=== PATIENT | male | born 1940 | race Caucasian/White ===

== ENCOUNTER → 2016-10-05 | Outpatient (CLI) | payer OTHER | LOC: BHFA 13:15 | PROVIDERS: ATTEND Internal Medicine Cardiovascular Disease | DX: I38 Endocarditis, valve unspecified (principal); I10 Essential (primary) hypertension ==

== ENCOUNTER → 2016-10-13 | Outpatient (CLI) | payer OTHER | LOC: BHFA 09:00 | PROVIDERS: ATTEND Internal Medicine Cardiovascular Disease | DX: R94.31 Abnormal electrocardiogram [ECG] [EKG] (principal); I10 Essential (primary) hypertension; I07.1 Rheumatic tricuspid insufficiency ==

== ENCOUNTER → 2016-10-20 | Outpatient (CLI) | payer OTHER | LOC: BHFA 13:30 | PROVIDERS: ATTEND Internal Medicine Cardiovascular Disease | DX: R94.31 Abnormal electrocardiogram [ECG] [EKG] (principal); R94.39 Abnormal result of other cardiovascular function study; I10 Essential (primary) hypertension; I07.1 Rheumatic tricuspid insufficiency | CPT/HCPCS: 78452; 93017; A9500 ==

== ENCOUNTER → 2016-10-27 | Outpatient (CLI) | payer OTHER | LOC: FIMAGING 10:07 | PROVIDERS: ATTEND Orthopaedic Surgery | DX: M25.511 Pain in right shoulder (principal); M75.111 Incomplete rotator cuff tear or rupture of right shoulder, not specified as traumatic; M75.21 Bicipital tendinitis, right shoulder; M75.81 Other shoulder lesions, right shoulder; M12.9 Arthropathy, unspecified ==

== ENCOUNTER → 2016-12-10 | Outpatient (CLI) | payer OTHER ==
[~2016-12-10] MED LIST: GADOBUTROL 10 ML VIAL IVP ONE
== END ==
LOC: FIMAGING 07:57
PROVIDERS: ATTEND Physician Assistant
DX: M51.36 Other intervertebral disc degeneration, lumbar region (principal); M51.37 Other intervertebral disc degeneration, lumbosacral region; M43.16 Spondylolisthesis, lumbar region; M12.88 Other specific arthropathies, not elsewhere classified, other specified site; M48.06 Spinal stenosis, lumbar region; M48.07 Spinal stenosis, lumbosacral region; M99.73 Connective tissue and disc stenosis of intervertebral foramina of lumbar region; Z98.1 Arthrodesis status
CPT/HCPCS: 72158; A9585

== ENCOUNTER 2017-03-25 05:52 | Observation (INO) | payer OTHER ==
--- NOTE | 2017-03-24 09:00 | GHP ---
[f rep st] PREOP HISTORY AND PHYSICAL DATE OF ADMISSION: 03/25/2017 HISTORY: Lorenzo is a pleasant 76-year-old right-hand dominant gentleman well known to my practice. He has had a 9 month history of right shoulder pain that occurred while doing yoga. He had surgery in November of this year. However, his right upper extremity numbness has been aggravated since the johnson rgery. Furthermore, his right shoulder pain remains. He perceives a cold sensation in his right up per extremity. The patient denies any loss of dexterity and no loss of balance. He does have numbn ess in the right upper extremity as well as pain. On a visual analog scale of 1-10, he rates his da jaylen pain of 5. He has tried a number of nonoperative treatments. SOCIAL HISTORY: Negative for tobacco. He uses alcohol occasionally. FAMILY HISTORY: Uterine cancer in his mother. ALLERGIES: To medications are none. PAST MEDICAL HISTORY: Negative. PAST SURGICAL HISTORY: Left hand repair due to the lacerations, L4-5 laminectomy in 2001, L4-L5 rev ision laminectomy with anterior and posterior fusion with instrumentation in 2006, and an L3-4 torsten ectomy in 2012, all by myself. Also significant for the recent right shoulder surgery. MEDICATIONS: None. He stopped his aspirin over a week ago. PHYSICAL EXAM: VITAL SIGNS: Blood pressure is 142/78. CARDIAC: Regular rate and rhythm without d etectable murmur rub or gallop. LUNGS: Clear to auscultation. He has no wheezing or rhonchi. ALE ROLOGIC: Exam shows decreased left and right rotation of the cervical spine. Strength of bilateral upper extremities is 5/5 throughout. Light touch is intact to bilateral upper extremities with the exception of the right thumb and index finger, and left small finger. Reflexes are absent except f or the left triceps is 1/4. Aaron test is negative x2. Spurling test is negative x2. He is ten johnathan to palpation along the right inferior border of the medial aspect of the scapula. Gait is ashley l. RADIOGRAPHIC STUDIES: MRI dated 02/24/2017 of the cervical spine shows severe spinal stenosis C3-4 with myelomalacia within the spinal cord. At C4-5 he has a spondylolisthesis. C5-C7 shows moderate to severe degenerative disk disease. He has mild stenosis at C4-5. EMG of bilateral upper extremities shows mild right carpal tunnel syndrome and mild right thoracic o utlet syndrome. IMPRESSION: 1. Cervical myelomalacia at C3-4. 2. Severe stenosis C3-4 and mild at C4-5. 3. Grade 1 spondylolisthesis C4-5. PLAN: Given the myelomalacia due to the severe stenosis, surgery is recommended. Although patient has moderate to severe degenerative disk disease at C5-C7, I have recommended addressing only the C3 -4 and C4-5 levels given he has minimal neck pain and a 4 level fusion would not be in the patient's best interest. He agrees. Potential risks, benefits, possible complications have been thoroughly discussed including but not limited to, dural tear with CSF leak, meningitis, nerve root injury, par tial or complete paralysis, infection, need for further surgery, Deng syndrome, dysphagia, aphonia , injury to the esophagus or the trachea, nonunion, breakage or pullout of internal fixation, as wel l as DVT, PE, pneumonia, stroke, heart attack, hemorrhage, blindness, and . The patient's ques tions have been answered thoroughly. He will be n.p.o. after midnight tonight. /[id number]/MODL
[2017-03-25] MEDS ORDERED: ceFAZolin 2 GM/DEXTROSE 100 ML IV ONE (06:00)
[2017-03-25] MEDS ORDERED: LR 1,000 ML IV ONE (06:14)
[2017-03-25] MEDS ORDERED: LIDOCAINE 1% 2 ML INJ ID PRN (06:14)
[2017-03-25] MEDS ORDERED: AVITENE POWDER 1 GM JAR TP ONE (06:48)
[2017-03-25] MEDS ORDERED: THROMBIN (BOVINE) 20,000 UNIT VIAL TP ONE (06:48)
[2017-03-25] MEDS ORDERED: BACITRACIN 50,000 UNITS/10 ML SYR IRR ONE (06:49)
--- NOTE | 2017-03-25 07:17 | PDHPUP ---
History & Physical Update H&P update statement: This history and physical update is based on an assessment of the patient which was completed after admission or registration (within 24 hours), but prior to the surgery/procedure. H&P update: H&P reviewed & patient examined, no change in patient's condition since H&P completed
[2017-03-25] MEDS ORDERED: METHYLENE BLUE 0.5% 50 MG/10 ML AMP ONE (07:18)
[2017-03-25] MEDS ORDERED: fentaNYL 100 MCG/2 ML INJ ONE ×3 (07:26→10:48)
[2017-03-25] MEDS ORDERED: REMIFENTANIL HCL 1 MG VIAL ONE (07:26)
[2017-03-25] MEDS ORDERED: PROPOFOL 200 MG/20 ML VIAL ONE (07:26)
[2017-03-25] MEDS ORDERED: PROPOFOL/EMULSION 500 MG/50 ML BOTTLE IV ONE (07:26)
[2017-03-25] MEDS ORDERED: ROCURONIUM 50 MG/5 ML VIAL ONE (07:26)
[2017-03-25] MEDS ORDERED: ONDANSETRON 4 MG/2 ML VIAL ONE (07:26)
[2017-03-25] MEDS ORDERED: LIDOCAINE 2% 5 ML SDV ONE (07:27)
[2017-03-25] MEDS ORDERED: PHENYLEPHRINE HCL 100 MCG/ML SYR ONE (07:35)
[2017-03-25] MEDS ORDERED: BISACODYL 10 MG SUPP PR PRN (07:36)
[2017-03-25] MEDS ORDERED: ONDANSETRON DISINTEGRATING 4 MG TAB PO PRN (07:36)
[2017-03-25] MEDS ORDERED: METHOCARBAMOL 750 MG TAB PO PRN (07:36)
[2017-03-25] MEDS ORDERED: diphenhydrAMINE 25 MG CAP PO PRN (07:36)
[2017-03-25] MEDS ORDERED: LACTULOSE 20 GM/30 ML UDCUP PO PRN (07:36)
[2017-03-25] MEDS ORDERED: ONDANSETRON 4 MG/2 ML VIAL IVP PRN ×2 (07:36→08:50)
[2017-03-25] MEDS ORDERED: ZOLPIDEM TARTRATE 5 MG TAB PO PRN (07:36)
[2017-03-25] MEDS ORDERED: POLYETHYLENE GLYCOL 3350 17 GM PKT PO PRN (07:36)
[2017-03-25] MEDS ORDERED: oxyCODONE IR 5 MG TAB PO PRN (07:36)
[2017-03-25] MEDS ORDERED: MAGNESIUM HYDROXIDE 30 ML UDCUP PO PRN (07:36)
[2017-03-25] MEDS ORDERED: DIAZEPAM 5 MG TAB PO PRN (07:42)
[2017-03-25] MEDS ORDERED: NS 1,000 ML IV SCH (07:45)
[2017-03-25] MEDS ORDERED: epHEDrine SULFATE 10 MG/ML SYR ONE ×3 (08:03→08:39)
[2017-03-25] MEDS ORDERED: DEXAMETHASONE 4 MG/ML VIAL ONE ×2 (08:23)
--- NOTE | 2017-03-25 08:43 | PDANEPAE ---
ANE Past Medical History - Cardiovascular History Hx Hypertension: Yes Hx Arrhythmias: No Hx Chest Pain: No Hx Coronary Artery / Peripheral Vascular Disease: No Hx CHF / Valvular Disease: Yes Hx Palpitations: No Cardiovascular History Comment: PVC'S - Pulmonary History Hx COPD: No Hx Asthma/Reactive Airway Disease: No Hx Recent Upper Respiratory Infection: No Hx Oxygen in Use at Home: No Hx Sleep Apnea: No Sleep Apnea Screening Result - Last Documented: Positive - Neurologic History Hx Cerebrovascular Accident: No Hx Seizures: No Hx Dementia: No - Endocrine History Hx Diabetes: No Hypothyroid: Yes Hyperthyroid: No Obesity: no Endocrine History Comment: HYPOTHYROID - Renal History Hx Renal Disorders: No - Liver History Hx Hepatic Disorders: No - Neurological & Psychiatric Hx Hx Neurological and Psychiatric Disorders: No - Cancer History Hx Cancer: Yes Cancer History Comment: BLADDER - Congenital Disorder History Hx Congenital Disorders: No - GI History GERD: no Hx Gastrointestinal Disorders: No - Other Health History Other Health History: NEUROPATHY. ELEVATED IOP - Chronic Pain History Chronic Pain: Yes (RT ARM NUMBNESS) - Surgical History Prior Surgeries: RT SHLDR SCOPE 12/03/2016. TUR X2. TURP. LUMBAR FUSION. CERVICAL DANITA. COLONOSCOPY ANE Review of Systems - Exercise capacity METS (RN): 5 METS ANE Patient History - Allergies Allergies/Adverse Reactions: midazolam [From Versed] Allergy (Verified 03/18/17 11:13) DECREASED OXYGEN SATS CIGARETTE SMOKE Allergy (Intermediate, Uncoded 02/14/10 09:54) Other-Enter Comments ETHER Allergy (Intermediate, Uncoded 02/14/10 09:54) Other-Enter Comments SAW DUST Allergy (Intermediate, Uncoded 02/14/10 09:54) Other-Enter Comments - Home Medications Home Medications: Latanoprost 0.005% [Xalatan 0.005% (*)] 1 drops EACHEYE HS 03/17/17 [Last Taken 03/24/17] Levothyroxine [Synthroid 100 mcg (*)] 100 mcg PO DAILY06 03/17/17 [Last Taken ] Losartan Potassium [Cozaar 25 mg (*)] 25 mg PO DAILY 03/17/17 [Last Taken ] - NPO status NPO Since - Liquids (Date): 03/24/17 NPO Since - Liquids (Time): 21:30 NPO Since - Solids (Date): 03/24/17 NPO Since - Solids (Time): 20:00 - Anes Hx Anes Hx: no prior problems - Smoking Hx Smoking Status: Never smoked - Alcohol Use Alcohol Use: Occasionally - Family Anes Hx Family Anes Hx: neg - N/A ANE Labs/Vital Signs - Vital Signs Blood Pressure: 130/89 Heart Rate: 79 Respiratory Rate: 16 O2 Sat (%): 96 Height: 176.53 cm Weight: 77.111 kg ANE Physical Exam - Airway Neck exam: decreased ROM Mallampati Score: Class 1 Mouth exam: normal dental/mouth exam - Pulmonary Pulmonary: no respiratory distress, no rales or rhonchi, clear to auscultation - Cardiovascular Cardiovascular: systolic murmur, bradycardia - ASA Status ASA Status: II ANE Anesthesia Plan Anesthesia Plan: general endotracheal anesthesia
[2017-03-25] MEDS ORDERED: D5W LR 500 ML IV PRN (08:50)
[2017-03-25] MEDS ORDERED: fentaNYL 100 MCG/2 ML INJ IVP PRN ×2 (08:50)
[2017-03-25] MEDS ORDERED: HYDROCODONE/APAP 5/325 TAB PO PRN (08:50)
[2017-03-25] MEDS ORDERED: ACETAMINOPHEN 500 MG TAB PO PRN (08:50)
[2017-03-25] MEDS ORDERED: NALOXONE HCL 0.4 MG/ML INJ IVP PRN (08:50)
[2017-03-25] MEDS ORDERED: OXYCODONE/APAP 5/325 TAB PO PRN (08:50)
[2017-03-25] MEDS ORDERED: PROMETHAZINE HCL 25 MG/ML INJ IVP PRN (08:50)
[2017-03-25] MEDS ORDERED: CEFAZOLIN 1 GM/DEXTROSE/50 ML BAG IV ONE (10:12)
--- NOTE | 2017-03-25 10:20 | POSTOPPROG ---
Post Op Note Date of Operation: 03/25/17 Surgeon: Bridget Alexander Salvage Supervisor: Meron Davison SA Anesthesiologist: DO Venkata Anesthesia: GET(General Endotracheal) Pre-op Diagnosis: C3-5 stenosis and myelomalacia Post-op Diagnosis: same Indication: myelomalacia Procedure: C3-5 ACDF/I Findings: severe stenosis C3-4 and mod at C4-5 Inf/Abcess present in the surg proc area at time of surgery?: No Depth: Deep Incisional (Fascial) EBL: 50 cc Total fluids administered: 1600cc Complications: none. No changes in SSEPs, MEPs, and EMGs.
[2017-03-25] MEDS: LOSARTAN POTASSIUM 25 MG TAB PO SCH (11:52)
[2017-03-25] MEDS: SENNOSIDES/DOCUSATE SODIUM TAB PO SCH ×2 (11:52→20:48)
--- NOTE | 2017-03-25 11:56 | POSTANESTH ---
Post Anesthetic Evaluation Cardiovascular Status: Normal, Stable Respiratory Status: Normal, Stable Level of Consciousness/Mental Status: Can Participate in Eval Pain Control: Adequate, Prn Tx Ordered Nausea/Vomiting Control: Adequate, Prn Tx Ordered Complications Possibly Related to Anesthesia: None Noted
[2017-03-25] MEDS: ceFAZolin 2 GM/DEXTROSE 100 ML IV SCH ×2 (14:05→20:47)
[2017-03-25] MEDS: ACETAMINOPHEN 500 MG TAB PO SCH ×2 (14:06→20:46)
[2017-03-25] MEDS ORDERED: LATANOPROST 0.005% 2.5 ML OPHT DROPS EACHEYE SCH (21:00)
[2017-03-26] MEDS: ACETAMINOPHEN 500 MG TAB PO SCH ×2 (05:48→14:24)
[2017-03-26] MEDS ORDERED: LEVOTHYROXINE 100 MCG TAB PO SCH (06:00)
[2017-03-26] MEDS: SENNOSIDES/DOCUSATE SODIUM TAB PO SCH (07:58)
[2017-03-26] MEDS: LOSARTAN POTASSIUM 25 MG TAB PO SCH (07:59)
[2017-03-26 11:18] VITALS: RESP 18
[2017-03-26 11:40] VITALS: BP 112/64; PULSE 59; TEMP 98.2; O2SAT 92
--- NOTE | 2017-03-26 13:36 | SOAPPROG ---
SOAP Progress Note Assessment/Plan: Assessment: post op day 1, s/p C3-5 ACDF/I for severe stenosis and myelomalacia. Pt doing well. Dysphagia present. Pt saw speech path. Plan: Ready for discharge to home. 03/26/17 13:32 Subjective: Pt states he gets bread caught in his throat. Dysphagia 2 diet had been ordered. Numbness in RUE unchanged. Objective: Vital Signs Temp Pulse Resp BP Pulse Ox 36.8 C 59 L 18 112/64 92 03/26/17 11:39 03/26/17 11:39 03/26/17 11:39 03/26/17 11:39 03/26/17 11:39 03/25/17 03/26/17 03/27/17 05:59 05:59 05:59 Intake Total 3818 Output Total 2400 Balance 1418 BUE motor 5/5. No Deng's syndrome. ICD10 Worksheet Patient Problems: Problems Problem Status Onset Stenosis of cervical spine with myelopathy Acute - ICD10 Problem Qualifiers (1) Stenosis of cervical spine with myelopathy
--- NOTE | 2017-03-26 18:04 | GDS ---
[f rep st] DISCHARGE SUMMARY HOSPITAL COURSE: The patient is a pleasant 76-year-old, right-hand dominant gentleman well known to my practice. He had had a 9-month history of right shoulder pain and has experienced increasing ri ght upper extremity tingling and numbness. On exam, his strength was normal, but MRI showed myeloma lacia at the C3-4 level and grade 1 spondylolisthesis at C4-5. Surgery was recommended due to the s evere stenosis and myelomalacia. On 03/25/2017, patient was brought to the operating room and underwent a general endotracheal intuba tion. Under neuromonitoring using somatosensory evoked potentials, motor evoked potentials, and EMG s, patient underwent a C3-C5 anterior diskectomy fusion with instrumentation. Findings were severe stenosis at C3-4 and moderate at C4-5. There were no changes in spinal cord monitoring. Patient di d very well. Postoperatively, the patient was seen in PT, OT, and speech pathology. He did have so me dysphagia, especially with bread, and was recommended a dysphagia type 2 diet. Neurologically, t here were no changes. He has been ambulating. He has urinated without difficulty. He has had no n ausea or vomiting and only using Tylenol for pain control. Patient is being discharged to home in s atisfactory condition. He and his know that he needs to wear a soft cervical collar at all trace es except for during showers. He needs to do a daily dry dressing change. He had been given prescr iptions in advance from my office including Valium, Percocet, and Keflex. He knows to call my offic e immediately or go to the nearest emergency room or call if he were to have any difficulty wi th airway and breathing. I encouraged him to continue with a soft liquid diet until the dysphagia s ubsides. He needs to walk but no lifting more than 20 pounds. His questions were answered thorough ly, and patient has a follow-up appointment with me in 2 weeks. /[id number]/MODL
--- NOTE | 2017-03-29 09:32 | GOP ---
[f rep st] OPERATIVE REPORT DATE OF OPERATION: 03/25/2017 SURGEON: Bridget Bruce MD OPERATIONS SUPPORT SPECIALIST: Steven Davison SA ANESTHESIA: Dr. Holland Hastings, general endotracheal intubation. PREOPERATIVE DIAGNOSIS: 1. C3-4 cervical myelomalacia. 2. C4-5 spondylolisthesis. 3. Severe stenosis C3-4 and mild C4-5. POSTOPERATIVE DIAGNOSIS: 1. C3-4 cervical myelomalacia. 2. C4-5 spondylolisthesis. 3. Severe stenosis C3-4 and mild C4-5. PROCEDURE PERFORMED: 1. C3-4 and C4-5 anterior diskectomy complete decompression. 2. Anterior interbody arthrodesis. 3. Anterior instrumentation with spinal element Sapphire plate and screws. FINDINGS: Severe spinal stenosis C3-4 and moderate spinal stenosis C4-5, moderate degenerative disk disease C4-5 with spondylolisthesis. ESTIMATED BLOOD LOSS: 50 cc. INDICATIONS: The patient is a pleasant 76-year-old [id number] gentleman well-known to my p elena. He is 9 months status post a right shoulder injury. He had shoulder surgery approximately 4 months ago and his right upper extremity numbness has been aggravated since then. He also has a cold sensation in his right upper extremity. Patient denies any loss of dexterity. He has pain and on a 1 to 10 scale, rates it a 5. On MRI he was found have cervical spinal cord myelomalacia at C3 -4 and severe stenosis at that level, as well as instability at C4-5. He also has taadzfoa-gf-xtmwr e degenerative disk disease C5-6 and C6-7. Per my recommendation due to the myelomalacia and severe stenosis, surgery was recommended. No guarantees were given in regard to surgical outcome. Potent ial risks, benefits, possible complications have been thoroughly discussed including, but not limite d to, dural tear with CSF leak, meningitis, nerve root injury, partial or complete paralysis, infect ion, Deng syndrome, dysphagia, aphonia, junctional breakdown, nonunion, need for further surgery, lack of improvement of symptomatology, DVT, PE, pneumonia, stroke, heart attack, hemorrhage, blindne ss, and . DESCRIPTION OF PROCEDURE: After obtaining both written and verbal consent from the patient, he was brought to the operating room where he underwent a general endotracheal intubation. Patient receive d IV antibiotics. Gaytan catheter was placed. Neural monitoring was set up including somatosensory evoked potentials, motor evoked potentials, and EMGs. A lateral fluoroscopic x-ray of the cervical spine using an exterior metallic marker was obtained for localization. The anterior aspect of the c ervical spine was prepped and draped in the normal sterile fashion. A time-out was performed with jessica hwang entire operating room team, confirming patient's name, date of , planned surgical procedure including levels, antibiotics given, and allergies to medications. A left-sided transverse incision was made at C4. The incision was brought down through skin, subcut aneous tissues, into the overlying platysma. The deep cervical fascia was incised along the medial border of the sternocleidomastoid muscle. The trachea and the esophagus were gently retracted towar d the midline. The pretracheal and prevertebral fascia were bluntly dissected. The anterior aspect of the cervical spine was identified. Two bent spinal needles were placed at disk spaces based on the anatomic landmarks and the x-ray indeed showed these to be at the correct levels, which were C3- 4 and C4-5. The bent spinal needles were removed. The longus coli muscles were elevated with Bovie cautery. The operating microscope was brought in for further visualization. Buckner pins were plac ed, one at C3 and one at C4. Under the microscope, a 15-blade knife was used to create an annulotom y at C3-4. The disk was mildly degenerative. It was removed via piecemeal. The disk was removed a ll the way back to the posterior longitudinal ligament which was significantly hypertrophied and the re were posterior osteophytes that were taken down with a 1.5 mm Kerrison. The posterior longitudin al ligament was completely removed to decompress the spinal cord. At this level, stenosis was quite severe prior to decompression. Foraminotomies were also performed with a 2 mm Kerrison bilaterally . A 5 mm barrel-shaped bur was then used to create parallel endplates and the disk space was measur ed using trials. The most appropriate trial was a 9 mm. Therefore, a 16 x 13 x 9 mm lordosed PEEK Ti-Young cage by [employer] was prepared using autogenous local bone graft, as well as demineral ized bone matrix. The Crystal Ti-Young PEEK cage was tamped into position at C3-4 and recessed about 1 mm. A micro nerve hook was used to palpate posterior to the bone graft and there was no iatrogen ic compression of the spinal cord. Then, the C4-5 level was addressed. There was an anterior osteo phyte that was removed with a 5 mm round bur. Buckner pins were placed at C4 and C5 and very minimal distraction was placed. A 15-blade knife was used to create an annulotomy at C4-5. The disk was r emoved via piecemeal again using a 2-0 curved curette and pituitary [place] rongeur. The posterior lo ngitudinal ligament again was hypertrophied, but not as severely. There was moderate stenosis at th is level and moderate degenerative disk disease. The endplates were made to be parallel using a 5 m m barrel-shaped bur and local bone graft was saved for the arthrodesis. Foraminotomies were perform ed using a 2 mm Kerrison due to moderate stenosis bilaterally. Then, using trials again, a 10 mm tr ial had the best fit, and therefore, a 14 x 11 x 10 mm lordosed Crystal PEEK Ti-Young cage was placed using autogenous bone graft, as well as demineralized bone matrix. It was recessed about 1 mm and a 5 mm round bur was then used to contour the anterior aspect of C4-5 due to the spondylolisthesis. Then, at this time under loupe magnification, a 35 mm Sapphire plate by [employer] was chosen, contoured into cervical lordosis, and placed under direct visualization. The right C3 screw was 4 mm in diameter and 16 mm in length which was self-drilling, and all other screws were 4 mm x 14 mm i n length self-drilling. Two screws were placed at C3, two at C4, and two at C5 with excellent purch ase. The interlocking screw was tightened per the supervisory forester's recommendation. An AP and lateral fluoroscopic x-ray showed excellent position of internal fixation from C3 to C5. Under loupe magni fication, bipolar cautery and thrombin-soaked Gelfoam, as well as Avitene were utilized for hemostas is. The wound was completely dry prior to closure, and therefore, no drain was necessary. The stru ctures including esophagus and trachea were in excellent condition, as well as the spinal cord prior to placement of the PEEK cages and the carotid sheath and its contents. The wound was closed using a 2-0 undyed Vicryl in interrupted fashion in the platysma, followed by a 4-0 Prolene in a subcutic ular running fashion in the skin. Steri-Strips were applied. Sterile dressing was placed. Soft ce rvical collar was placed. There were no changes in somatosensory evoked potentials, motor evoked po tentials, or EMGs. The Gaytan catheter was removed. Patient was extubated in the operating room and brought to the recovery room in satisfactory condition. COMPLICATIONS: None. DRAINS: None. COUNTS: Sponge and needle count were correct upon closure. POSTOPERATIVE PLAN: Close neurologic observation, close airway observation, PT, OT, and pain contro l, as well as speech pathology. /[id number]/MODL
== END 2017-03-26 15:55 | disposition home or self-care (01) ==
LOC: F3N 05:52
PROVIDERS: ADMIT Orthopaedic Surgery Orthopaedic Surgery of the Spine; ATTEND Orthopaedic Surgery Orthopaedic Surgery of the Spine
PROC: 4A1004G Monitoring of Central Nervous Electrical Activity, Intraoperative, Open Approach (ICD-10-PCS; principal; 2017-03-25 07:15)
PROC: 0RG20A0 Fusion of 2 or more Cervical Vertebral Joints with Interbody Fusion Device, Anterior Approach, Anterior Column, Open Approach (ICD-10-PCS; principal; 2017-03-25 07:15)
PROC: 00NW0ZZ Release Cervical Spinal Cord, Open Approach (ICD-10-PCS; principal; 2017-03-25 07:15)
PROC: 0RB30ZZ Excision of Cervical Vertebral Disc, Open Approach (ICD-10-PCS; principal; 2017-03-25 07:15)
DX: M48.02 Spinal stenosis, cervical region (principal); G95.89 Other specified diseases of spinal cord; M43.12 Spondylolisthesis, cervical region; M50.322 Other cervical disc degeneration at C5-C6 level; M50.323 Other cervical disc degeneration at C6-C7 level; R13.10 Dysphagia, unspecified
CPT/HCPCS: 22551; 22552; 76001; 92610; 97161; 97165; C1713; G8978; G8979; G8980; G8987; G8988; G8989; G8996; G8997; J0690; J1100; J2370; J2405; J2704; J3010; Q9968

== ENCOUNTER 2017-03-31 11:39 | Inpatient (IN) | payer OTHER ==
[2017-03-31] MEDS ORDERED: ceFAZolin 2 GM/DEXTROSE 100 ML IV ONE (11:42)
[2017-03-31] MEDS ORDERED: LIDOCAINE 1% 2 ML INJ ONE (11:45)
[2017-03-31] MEDS ORDERED: THROMBIN (BOVINE) 20,000 UNIT VIAL TP ONE (11:48)
[2017-03-31] MEDS ORDERED: AVITENE POWDER 1 GM JAR TP ONE (11:48)
--- NOTE | 2017-03-31 11:48 | PDANEPAE ---
ANE History of Present Illness cervical hematoma s/p ACDF C5-7 on 03/25/17 ANE Past Medical History - Cardiovascular History Hx Hypertension: Yes Hx Arrhythmias: No Hx Chest Pain: No Hx Coronary Artery / Peripheral Vascular Disease: No Hx CHF / Valvular Disease: Yes Hx Palpitations: No Cardiovascular History Comment: PVC'S - Pulmonary History Hx COPD: No Hx Asthma/Reactive Airway Disease: No Hx Recent Upper Respiratory Infection: No Hx Oxygen in Use at Home: No Hx Sleep Apnea: No - Neurologic History Hx Cerebrovascular Accident: No Hx Seizures: No Hx Dementia: No - Endocrine History Hx Diabetes: No Endocrine History Comment: HYPOTHYROID - Renal History Hx Renal Disorders: No - Liver History Hx Hepatic Disorders: No - Neurological & Psychiatric Hx Hx Neurological and Psychiatric Disorders: No - Cancer History Hx Cancer: Yes Cancer History Comment: BLADDER - Congenital Disorder History Hx Congenital Disorders: No - GI History Hx Gastrointestinal Disorders: No - Other Health History Other Health History: NEUROPATHY. ELEVATED IOP - Chronic Pain History Chronic Pain: Yes (RT ARM NUMBNESS) - Surgical History Prior Surgeries: RT SHLDR SCOPE 12/03/2016. TUR X2. TURP. LUMBAR FUSION. CERVICAL DANITA. COLONOSCOPY ANE Review of Systems Review of systems is: negative - Exercise capacity Exercise capacity: >=4 METS ANE Patient History - Allergies Allergies/Adverse Reactions: midazolam [From Versed] Allergy (Verified 03/18/17 11:13) DECREASED OXYGEN SATS CIGARETTE SMOKE Allergy (Intermediate, Uncoded 02/14/10 09:54) Other-Enter Comments ETHER Allergy (Intermediate, Uncoded 02/14/10 09:54) Other-Enter Comments SAW DUST Allergy (Intermediate, Uncoded 02/14/10 09:54) Other-Enter Comments - Home Medications Home Medications: Latanoprost 0.005% [Xalatan 0.005% (*)] 1 drops EACHEYE HS 03/17/17 [Last Taken 03/24/17] Levothyroxine [Synthroid 100 mcg (*)] 100 mcg PO DAILY06 03/17/17 [Last Taken ] Losartan Potassium [Cozaar 25 mg (*)] 25 mg PO DAILY 03/17/17 [Last Taken ] - NPO status NPO Since - Liquids (Date): 03/31/17 NPO Since - Liquids (Time): 08:00 NPO Since - Solids (Date): 03/31/17 NPO Since - Solids (Time): 08:00 - Anes Hx Anes Hx: no prior problems - Smoking Hx Smoking Status: Never smoked ANE Physical Exam - Airway Neck exam: decreased ROM, spinal fusion, C-collar in place Mallampati Score: Class 2 Mouth exam: normal dental/mouth exam - Pulmonary Pulmonary: no respiratory distress - Cardiovascular Cardiovascular: regular rate and rhythym - ASA Status ASA Status: III, E ANE Anesthesia Plan Anesthesia Plan: general endotracheal anesthesia (emergent case)
[2017-03-31] MEDS ORDERED: BACITRACIN 50,000 UNITS/10 ML SYR IRR ONE (11:49)
[2017-03-31] MEDS ORDERED: PROPOFOL 200 MG/20 ML VIAL ONE (11:50)
[2017-03-31] MEDS ORDERED: fentaNYL 100 MCG/2 ML INJ ONE ×2 (11:50)
[2017-03-31] MEDS ORDERED: ROCURONIUM 100 MG/10 ML VIAL ONE (11:50)
[2017-03-31] MEDS ORDERED: LIDOCAINE 1% 2 ML INJ ID PRN (11:57)
[2017-03-31] MEDS ORDERED: LR 1,000 ML IV ONE (11:57)
[2017-03-31] MEDS ORDERED: diphenhydrAMINE 25 MG CAP PO PRN (12:03)
[2017-03-31] MEDS ORDERED: ONDANSETRON 4 MG/2 ML VIAL IVP PRN (12:03)
[2017-03-31] MEDS ORDERED: LACTULOSE 20 GM/30 ML UDCUP PO PRN (12:03)
[2017-03-31] MEDS ORDERED: BISACODYL 10 MG SUPP PR PRN (12:03)
[2017-03-31] MEDS ORDERED: oxyCODONE IR 5 MG TAB PO PRN (12:03)
[2017-03-31] MEDS ORDERED: MAGNESIUM HYDROXIDE 30 ML UDCUP PO PRN (12:03)
[2017-03-31] MEDS ORDERED: ONDANSETRON DISINTEGRATING 4 MG TAB PO PRN (12:03)
[2017-03-31] MEDS ORDERED: POLYETHYLENE GLYCOL 3350 17 GM PKT PO PRN (12:03)
[2017-03-31] MEDS ORDERED: DEXAMETHASONE 4 MG/ML VIAL ONE (12:09)
[2017-03-31] MEDS ORDERED: SUCCINYLCHOLINE CHLORIDE*ANESTHESIA ONLY*200 MG/10 ML SYR IVP ONE (12:09)
[2017-03-31] MEDS ORDERED: ONDANSETRON 4 MG/2 ML VIAL ONE (12:09)
--- NOTE | 2017-03-31 12:36 | GHP ---
[f rep st] PREOP HISTORY AND PHYSICAL DATE OF ADMISSION: 03/31/2017 HISTORY: The patient is a pleasant 76-year-old, right-hand dominant gentleman who is 6 days status post a C3-C5 anterior diskectomy, fusion with instrumentation for stenosis and myelomalacia. He thai led the office and stated he was having difficulty with swallowing. Initially postoperatively he wa s seen by the speech pathologist in the hospital and had no real issues. He was doing well up until approximately yesterday. He has had increasing difficulty with swallowing as well as breathing. H e states he is unable to breathe comfortably lying down but needs to be upright at all times. He wa s seen urgently in my office and on exam he is alert and oriented x3. He is stridorous. PAST MEDICAL HISTORY,: Significant only for BPH and bladder cancer. PAST SURGICAL HISTORY: Left hand surgery, lumbar fusion and the aforementioned C3-C5 anterior diske ctomy fusion with instrumentation. ALLERGIES: None. MEDICATIONS: Percocet. PHYSICAL EXAM: GENERAL: The patient is alert and oriented x3. He is clearly stridorous. His cerv ical wound shows a very large left-sided probable hematoma versus possible seroma. His trachea is d eviated to the right. His oxygen level has not been checked yet. HEART: He is not tachycardic. N EUROLOGIC: Shows strength of bilateral upper extremities to be 5/5 throughout. He still has some d ecreased sensation in the right hand which is unchanged from preoperatively. Gait is normal. RADIOGRAPHIC STUDIES: None. IMPRESSION: 1. Six days status post C3-C5 anterior diskectomy, fusion with instrumentation for stenosis and mye lomalacia. 2. Postoperative cervical retropharyngeal hematoma with airway compromise. PLAN: Patient is being admitted directly to the operating room. Potential risks, benefits, possibl e complications have been discussed with he and his and he understands this needs to be done on an emergent basis in which we will open his wounds, evacuate pressure and fluid from his trachea an d esophagus and explore the wound for any further active potential bleeding. He will then be admitt ed postoperatively as well. He ate at 7:30 this morning, small amounts as he is having a hard time getting any kind of food or liquid to stay down. Copy requested to: [facility] /[id number]/MODL
[2017-03-31] MEDS ORDERED: NALOXONE HCL 0.4 MG/ML INJ IVP PRN ×2 (12:45→13:22)
[2017-03-31] MEDS ORDERED: fentaNYL 100 MCG/2 ML INJ IVP PRN (12:45)
[2017-03-31] MEDS ORDERED: LR 500 ML IV PRN (12:45)
[2017-03-31] MEDS ORDERED: HYDROmorphONE/DILAUDID 1 MG/ML SYR IVP PRN (12:45)
[2017-03-31] MEDS ORDERED: SUGAMMADEX SODIUM 200 MG/2 ML VIAL IVP ONE (12:56)
--- NOTE | 2017-03-31 13:06 | POSTOPPROG ---
Post Op Note Date of Operation: 03/31/17 Surgeon: Bridget Alexander Front End Ui Developer: Meron Davison SA Anesthesiologist: Meron Isidro Anesthesia: GET(General Endotracheal) Pre-op Diagnosis: cervical retropharyngeal hematoma, s/p C3-5 ACDF Post-op Diagnosis: same Indication: difficulty breathing and swallowing Procedure: anterior cervical hematoma evacuation Findings: 75 cc retropharyngeal hematoma Inf/Abcess present in the surg proc area at time of surgery?: No Depth: Deep Incisional (Fascial) EBL: Minimal Complications: None. Drains: Darius Saavedra
[2017-03-31] MEDS ORDERED: LABETALOL HCL 50 MG/10 ML SYR IVP PRN (13:22)
[2017-03-31] MEDS ORDERED: LABETALOL HCL 5 MG/ML 20 ML MDV ONE (13:31)
[2017-03-31] MEDS: ACETAMINOPHEN 500 MG TAB PO SCH ×2 (15:16→21:00)
--- NOTE | 2017-03-31 15:21 | GOP ---
[f rep st] OPERATIVE REPORT DATE OF OPERATION: 03/31/2017 SURGEON: Bridget Bruce MD ROAD MACHINE RUNNER: Steven Davison SA. ANESTHESIA: Chris Isidro M.D., general endotracheal intubation. PREOPERATIVE DIAGNOSIS: 1. Six days status post C3 to C5 anterior diskectomy, fusion with instrumentation by myself. 2. Postoperative cervical hematoma with airway compromise. POSTOPERATIVE DIAGNOSIS: 1. Six days status post C3 to C5 anterior diskectomy, fusion with instrumentation by myself. 2. Postoperative cervical hematoma with airway compromise. PROCEDURE PERFORMED: Evacuation of anterior cervical retropharyngeal hematoma and exploration of an terior cervical wound. FINDINGS: Approximately 75 cc of hematoma-seroma. No evidence of spinal fluid leakage, and no evid ence of infection. INDICATIONS: The patient is a pleasant 76-year-old gentleman, well known to my practice. Six days ago he underwent a C3 to C5 anterior diskectomy, fusion with instrumentation for myelomalacia and se william stenosis by myself. He did well postoperatively. He called our office and stated he was havin g difficulty with swallowing. Today he was seen in the office and stated that he also has been havi ng difficulty with breathing, especially in the lying down supine position. His oral intake has dim inished significantly because of the dysphagia. He has no new arm pain or leg pain. He still has h is preoperative right upper extremity tingling and numbness. The patient was suspected to have a cervical retropharyngeal hematoma and surgery was recommended on an emergency basis. Potential risks, benefits, possible complications were thoroughly discussed wi th the patient including, but not limited to, dural tear with CSF leak, meningitis, nerve root injur y, partial or complete paralysis, infection, lack of improvement in symptomatology, DVT, PE, pneumon ia, stroke, heart attack, hemorrhage, blindness, and . No guarantees were given in regard to s urgical outcome. DESCRIPTION OF PROCEDURE: The patient was brought to the operating room and he underwent a general endotracheal intubation using the glide scope via the anesthesiologist. The anterior aspect of the cervical spine was prepped and draped in the normal sterile fashion. A left-sided transverse incisi on was made through his previous scar. This incision was brought down through the skin, subcutaneou s tissues into the overlying platysma. The sutures that had been placed in the platysma were remove d with suture scissors. Then, a large gush of coagulated blood came from the wound immediately. Th ere were no signs of infection and no purulence. As the wound was opened up more deeply using Cloward retractors, further hematoma was evacuated. In total this measured about 75 cc and appeared to be a combination of hematoma and seroma. Under loupe magnification, the wound was completely explored. The longus colli muscles were visuali zed and there were no signs of bleeding of the longus coli muscles. There was no evidence of spinal fluid leakage. Meticulous evaluation of the wound circumferentially and deep to superficial showed no evidence of active bleeding whatsoever. The plate was intact from C3 to C5 and there was no jaylyn akage or pull of internal fixation. Bipolar cautery was used to coagulate potential small sites of oozing, but there was absolutely noth ing active as though it had tamponaded itself. There were some previously placed 2-0 silk ties that were still in good position upon branches of the anterior branch of the external jugular vein. A 10 round CARISA drain was placed deep to the platysma and sewn in with a 2-0 nylon suture. The wound was completely dry prior to closure. The wound was then closed using a 2-0 undyed Vicryl in an inte rrupted fashion in the platysma, followed by a 4-0 Prolene in the subcuticular layer of the skin. S prince-Strips were applied. Sterile dressing was placed. Soft cervical collar was placed. It should be mentioned that a time-out had been performed before the entire operation. COMPLICATIONS: None. POSTOPERATIVE PLAN: Close neurologic observation, close airway observation, speech pathology, PT an d OT and pain control. /[id number]/MODL
[2017-03-31] MEDS: CEPACOL LOZENGE PO PRN (17:52)
[2017-03-31] MEDS: NS 1,000 ML IV SCH (18:04)
[2017-03-31] MEDS: ceFAZolin 2 GM/DEXTROSE 100 ML IV SCH (20:52)
[2017-03-31] MEDS: SENNOSIDES/DOCUSATE SODIUM TAB PO SCH (20:52)
[2017-04-01] MEDS: ceFAZolin 2 GM/DEXTROSE 100 ML IV SCH (04:18)
[2017-04-01] MEDS: NS 1,000 ML IV SCH (04:24)
[2017-04-01] MEDS: ACETAMINOPHEN 500 MG TAB PO SCH ×4 (05:33→21:37)
[2017-04-01 05:36] LABS: % IMMATURE GRANULYOCYTES 0.9 % (0.0-1.1); ABSOLUTE IMMATURE GRANULOCYTES 0.07 10^3/uL (0.00-0.10); ADD DIFF? NO; ADD MORPH? NO; ADD SCAN? NO; ATYPICAL LYMPHOCYTE FLAG 0 (0-99); FRAGMENT RBC FLAG 0 (0-99); HEMATOCRIT 39.4 % (40.0-51.0); HEMOGLOBIN 13.6 g/dL (13.7-17.5); LEFT SHIFT FLG 0 (0-99); LIPEMIA HEMOLYSIS FLAG 90 (0-99); MEAN CELL HEMOGLOBIN 30.8 pg (27.9-34.1); MEAN CELL HEMOGLOBIN CONCENTR. 34.5 g/dL (32.4-36.7); MEAN CELL VOLUME 89.1 fL (81.5-99.8); MEAN PLATELET VOLUME 9.2 fL (8.7-11.7); PLATELET CLUMPS FLAG 10 (0-99); PLATELET COUNT 249 10^3/uL (150-400); RED BLOOD CELL COUNT 4.42 10^6/uL (4.40-6.38); RED CELL DISTRIBUTION WIDTH 12.5 % (11.5-15.2)
[2017-04-01] MEDS: CEPACOL LOZENGE PO PRN (06:13)
[2017-04-01] MEDS: SENNOSIDES/DOCUSATE SODIUM TAB PO SCH ×2 (08:57→19:49)
--- NOTE | 2017-04-01 16:29 | SOAPPROG ---
SOAP Progress Note Assessment/Plan: Assessment: post op day 1, s/p retropharyngeal hematoma evacuation for airway obstruction, s /p C3-5 ACDF/I. Pt improved. Swallowing and breathing improved. Will keep pt overnight as he has rhonchi on exam. Plan: 04/01/17 16:20 Admit to in patient. Cont close airway observation. O2 prn to keep sats greater than 90%. Subjective: Pt states he feels better but feels some fluid/girgling in chest. Swallowing is improved. Saw speech path. Objective: Vital Signs Temp Pulse Resp BP Pulse Ox 36.7 C 86 21 H 140/80 H 98 04/01/17 16:00 04/01/17 16:00 04/01/17 16:00 04/01/17 16:00 04/01/17 16:00 Laboratory Results 04/01/17 05:19 03/31/17 04/01/17 04/02/17 05:59 05:59 05:59 Intake Total 1396 Output Total 1140 Balance 256 Anterior cervical wound with generalized but not localized edema. Drain functioning appropriately and minimal output. BUE motor 5/5. Rhonchi on exam ; left greater than R. ICD10 Worksheet Patient Problems: Problems Problem Status Onset Stenosis of cervical spine with myelopathy Acute
[2017-04-01] MEDS ORDERED: LATANOPROST 0.005% 2.5 ML OPHT DROPS EACHEYE SCH (21:00)
[2017-04-02] MEDS ORDERED: LEVOTHYROXINE 100 MCG TAB PO SCH (06:00)
[2017-04-02] MEDS: ACETAMINOPHEN 500 MG TAB PO SCH (06:42)
[2017-04-02] MEDS ORDERED: PRESERVISION AREDS2 FORMULA EYE VIT 1 EACH PO SCH (09:00)
[2017-04-02] MEDS ORDERED: LOSARTAN POTASSIUM 25 MG TAB PO SCH (09:00)
[2017-04-02] MEDS: SENNOSIDES/DOCUSATE SODIUM TAB PO SCH (09:02)
[2017-04-02 09:03] VITALS: BP 112/80
[2017-04-02 09:07] VITALS: PULSE 74; RESP 18; TEMP 98.4; O2SAT 94
--- NOTE | 2017-04-02 13:22 | SOAPPROG ---
SOAP Progress Note Assessment/Plan: Assessment: post op day 1, s/p retropharyngeal hematoma evacuation for airway obstruction, s /p C3-5 ACDF/I. Pt improved. Swallowing and breathing improved. Will keep pt overnight as he has rhonchi on exam. Plan: 04/01/17 16:20 Admit to in patient. Cont close airway observation. O2 prn to keep sats greater than 90%. 04/02/17 13:19 post op day 2 s/p hematoma evacuation anterior cervical wound. Pt improved. Stable from respiratory and neurological standpoint. Ready for discharge to home. Subjective: Pt states his "girggling resolved". Eating a soft mechanical type diet. No dysphagia. Objective: Vital Signs Temp Pulse Resp BP Pulse Ox 36.9 C 74 18 112/80 94 04/02/17 08:00 04/02/17 08:00 04/02/17 08:00 04/02/17 09:00 04/02/17 08:00 Laboratory Results 04/01/17 05:19 04/01/17 04/02/17 04/03/17 05:59 05:59 05:59 Intake Total 1396 950 Output Total 1140 10 Balance 256 950 -10 BUE motor 5/5. Numbness in R greater than L hand unchanged. No rasheed's syndrome. Anterior C spine with diffuse edema. Not focal. Drain removed without difficulty. No sign of infection. ICD10 Worksheet Patient Problems: Problems Problem Status Onset Stenosis of cervical spine with myelopathy Acute
--- NOTE | 2017-04-02 15:11 | GDS ---
[f rep st] DISCHARGE SUMMARY HOSPITAL COURSE: The patient is a pleasant 76-year-old gentleman who is well known to my practice. Six days after a C3-C5 anterior diskectomy and fusion with instrumentation by myself for severe nikia nosis and myelomalacia, patient was seen in my office for difficulty swallowing. He also stated he was having difficulty with breathing, especially lying down flat in a supine position at home. On e xam, he was found to have a wound hematoma which was quite large visually. He was admitted directly and taken to the operating room immediately on 03/31/2017. He underwent a general endotracheal int ubation using the GlideScope. At the time of surgery, the wound was opened up and he was found to h ave approximately 75 cc of combination of hematoma and seroma. There was no evidence of active blee ding once the wound was completely explored. There was also no evidence of infection. A 10 round d rain was placed deep in the wound so that any postoperative fluid would be drained off. Postoperati vely, the patient remained neurologically intact and had good oxygen saturations. He was kept in e transitional step-down care unit for close neurologic observation and close airway observation. P ostoperatively on day 1, he had some rhonchi and this improved on the postoperative 2nd day. His dy sphagia resolved almost completely, although he was seen by Speech Pathology and recommended soft di et. His oxygenation improved and was completely normal. The patient remained afebrile. The patient is being discharged to home now that the drain has been removed and the patient is doing well. DISCHARGE INSTRUCTIONS: He has a followup appointment for 2 weeks after the day of his surgery. He also knows to call my office immediately or to go to the nearest emergency room or call if he were to have any difficulty with airway or swallowing. The patient knows to avoid anti-inflammator ies. He also knows to do a daily dry dressing change and to wear his soft cervical collar at all ti mes. CONDITION ON DISCHARGE: The patient is being discharged home in satisfactory condition. /[id number]/MODL
== END 2017-04-02 15:20 | disposition home or self-care (01) | DRG 909 ==
LOC: F3N 11:39 → INTOOBSV 11:39 → F2N 14:08 → OBSVTOIN 04-01 16:37
PROVIDERS: ADMIT Orthopaedic Surgery Orthopaedic Surgery of the Spine; ATTEND Orthopaedic Surgery Orthopaedic Surgery of the Spine
PROC: 0KC30ZZ Extirpation of Matter from Left Neck Muscle, Open Approach (ICD-10-PCS; principal; 2017-03-31 11:45)
DX: M96.842 Postprocedural seroma of a musculoskeletal structure following a musculoskeletal system procedure (principal); Z98.1 Arthrodesis status; I10 Essential (primary) hypertension; E03.9 Hypothyroidism, unspecified
CPT/HCPCS: 92610-GN; G0378; G8996-GN-CI; G8997-GN-CI; G8998-GN-CI; J0330; J0690; J1100; J2405; J2704; J3010; J3490

== ENCOUNTER → 2017-05-10 | Outpatient (CLI) | payer OTHER | LOC: FIMAGING 13:11 | PROVIDERS: ATTEND Orthopaedic Surgery Orthopaedic Surgery of the Spine | DX: Z98.1 Arthrodesis status (principal) | CPT/HCPCS: 88120-90 ==

== ENCOUNTER → 2017-06-22 | Outpatient (CLI) | payer OTHER | LOC: FIMAGING 08:57 | PROVIDERS: ATTEND Orthopaedic Surgery Orthopaedic Surgery of the Spine | DX: Z09 Encounter for follow-up examination after completed treatment for conditions other than malignant neoplasm (principal); Z98.1 Arthrodesis status; M50.30 Other cervical disc degeneration, unspecified cervical region ==

== ENCOUNTER → 2017-08-29 | Outpatient (CLI) | payer OTHER | LOC: FIMAGING 10:59 | PROVIDERS: ATTEND Physician Assistant | DX: Z09 Encounter for follow-up examination after completed treatment for conditions other than malignant neoplasm (principal); Z98.1 Arthrodesis status; M50.322 Other cervical disc degeneration at C5-C6 level; M46.92 Unspecified inflammatory spondylopathy, cervical region ==

== ENCOUNTER → 2018-01-31 | Outpatient (CLI) | payer OTHER | LOC: FIMAGING 08:32 | PROVIDERS: ATTEND Physical Medicine & Rehabilitation | DX: M51.36 Other intervertebral disc degeneration, lumbar region (principal); Z98.1 Arthrodesis status | CPT/HCPCS: 72158; A9585; 82565-PO ==